=== PATIENT | female | born 1935 | race Caucasian/White ===

== ENCOUNTER → 2017-09-10 | Outpatient (CLI) | payer OTHER ==
[~2017-09-10] MED LIST: ADULT LOW DOSE81 MG PO; ALEVE220 MG PO; APAP500 PO; ATORVASTATIN CA40 MG PO; BRILINTA90 MG PO; CALCIUM 500 +1 EAC5 PO; CENTRUM SILVER1 EAC4 PO; CITRACAL + D E1 EACH PO; COLACE100 MG PO; COUMADIN 2 MG TA2 M1 PO; COZAAR 25MG TAB25 MG PO; COZAAR100 MG PO; EFFIENT10 MG PO; Effient PO; FISH OIL 1,0001 EAC5 PO; FLAX OIL1000 MG PO; HYDROCHLOROTH12.5 M2 PO; LEVOTHYROXIN0.137 M1 PO; LOPRESSOR25 PO; Lisinopril 10 Mg Tablet PO; METOPROLOL SUCC25 M1 PO; MULTIVITAMINS PO; NEXIUM20 M1 PO; NEXIUM40 MG PO; NITROGLYCERIN0.4 MG SUBLING; NITROQUICK0.4 MG PO; NORCO 5-325 TA1 EACH PO; OMEGA-31000 M1 PO; OMEPRAZOLE20 M2 PO; PRILOSEC 20 MG20 MG PO; UROCIT-K5 ME1 PO; VITAMIN B-12500 MCG PO; VITAMIN E400 UNIT PO; ZESTRIL10 MG PO; ZOCOR 20 MG TAB20 M1 PO; ZOCOR40 MG PO
== END ==
LOC: RAD 03:21
DX: Z12.31 Encounter for screening mammogram for malignant neoplasm of breast (principal)

== ENCOUNTER → 2018-09-11 | Outpatient (CLI) | payer OTHER | LOC: RAD 01:08 | DX: Z12.31 Encounter for screening mammogram for malignant neoplasm of breast (principal) ==

== ENCOUNTER → 2019-01-06 | Outpatient (CLI) | payer OTHER ==
[~2019-01-06] VITALS: Ht 162.6 cm; Wt 64.4 kg
[~2019-01-06] MED LIST changes: +CO Q-10100 MG PO; +COREG6.25 MG PO
[2019-01-06 08:16] VITALS: BP 150/67
[2019-01-06 08:18] LABS: HEMATOCRIT 38.2 % (37.0-47.0); HEMOGLOBIN 13.1 gm/dL (12.0-15.0); MCH 31.3 pg (26.0-34.0); MCHC 34.2 g/dL (28.0-37.0); MCV 91.6 fL (80.0-100.0); RBC 4.17 mil/uL (4.20-5.00); RDW 13.9 % (10.5-14.5); WBC 5.7 thou/uL (4.0-11.0)
[2019-01-06 08:28] LABS: CALCIUM 8.8 mg/dL (8.5-10.1); POTASSIUM 3.8 mmol/L (3.5-5.1)
--- NOTE | 2019-01-06 08:48 | EKG ---
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[employer] FLORES : 1935 Requested By: Sumeet Ortiz Order Number: [id number] MD: Kevon Good Measurements Intervals [place] Rate: 83 P: 28 IN: 217 QRS: -38 QRSD: 93 T: 31 QT: 386 QTc: 454 Interpretive Statements Sinus rhythm Borderline prolonged IN interval Abnormal R-wave progression, late transition Leftward axis Compared to ECG 10/04/2015 07:52:18 No significant change was found Electronically Signed On 01-06-2019 8:48:44 MAORI LIAISON ADVISER by Kevon Good [email or web address] <ELECTRONICALLY SIGNED> By: Kevon Good MD, [facility] 01/06/19 0848 5 Kevon Good MD, [facility] /EPI
--- NOTE | 2019-01-06 10:58 | CATHLAB ---
[facility] [place] [place] [address] INVASIVE PROCEDURE REPORT Name: REEDMURPHY Carty Room #: REG [facility]#: [id number] Admission: 01/06/19 Attend Phys: Sumeet Ortiz MD Discharge: Date of : 39 Date of Service: 01/06/19 1058 Report #: [id number] THIS REPORT FOR: //name// APPROVED REPORT Study performed: 01/06/2019 09:12:48 Patient Details Patient Status: Out-Patient Room #: The patient is a 83 year-old female Event Personnel Sumeet Ortiz Ui Architect, Gurpreet Melendez RN, Barrington Khan Mahmood, Amber Monitor Procedures Performed Art Access - R femoral artery* 56022 Initial Mod Sed Same Phys/QHP Gr5y 937300 Left Heart Cath w/or w/o Coronaries [id number] [facility] Hemostasis with Manual pressure Indication Dyspnea, Unstable angina , Chest pain Risk Factors Hypercholesterolemia, Coronary Artery DiseaseHypertension Procedure Narrative The patient was brought electively to the Cardiac Catheterization Laboratory and was prepped and draped in a sterile manner. The Right Groin^ was infiltrated with 1% Lidocaine subcutaneous anesthesia. A PINNACLE 4FR Sheath #[id number] sheath was inserted into the RFA^. Coronary angiography was performed using coronary diagnostic catheters. The right coronary system was accessed and visualized with a JR 4 catheter. The left coronary system was accessed and visualized with a JL 4 catheter. The left ventricle was accessed and visualized with a Pigtail catheter. Left ventricular/Aortic Valve gradient assessed via catheter pullback. Left ventriculogram was performed in TRACY projection. Hemostasis was obtained with manual pressure following sheath removal without any complications. The patient tolerated the procedure well and there were no complications associated with the procedure. There was no hematoma. Intraoperative Conscious Sedation Sedation start time: 938 Case end Time: 09:56 [facility] [place] [address] INVASIVE PROCEDURE REPORT Name: MURPHY MCBRIDE Room #: REG [facility]#: [id number] Admission: 01/06/19 Attend Phys: Sumeet Ortiz MD Discharge: Date of : 39 Date of Service: 01/06/19 1058 Report #: [id number] Fentanyl 50 mcg Versed 1 mg Fluoro Time: 1.55 minutes Dose: DAP 2229.00 cGycm2 297 mGy Contrast Type and Amount: Omnipaque 95 ml Coronary Angiography The patient's coronary anatomy is co- dominant. Diagnostic Cath Left Main This is a large caliber vessel, with no flow-limiting lesions. LAD This is a moderate size caliber vessel, traversing the anterior wall and terminating at the apex. There is a patent stent in the proximal segment with mild restenosis. There is a mild lesion in the mid segment of the LAD, 30%. Diagonal 1 This is a small-caliber vessel, patent with no flow-limiting lesions. Diagonal 2 This is a small-caliber vessel, patent with no flow-limiting lesions. Circumflex This is a codominant vessel. The proximal segment is mildly ectatic. There is a stent in the midsegment, patent with minimal restenosis. OM1 This is a moderate size caliber vessel, with mild disease proximally. OM2 This is a small-caliber vessel, patent with no flow-limiting lesions. OM3 This is a moderate size caliber vessel, with a patent stent at the proximal segment with minimal restenosis. Right Coronary There is a patent stent in the proximal/mid segment with minimal restenosis. R PDA This is a patent vessel, with no flow-limiting lesions. Left Ventriculography The left ventricle is normal in size with normal contractility. The left ventricular ejection fraction is estimated to be 55-60%. Hemodynamics The aortic pressure is 116/75 mmHg with a mean of 96 mmHg. The left ventricular pressure is 130/14 mmHg with a mean of mmHg. The left ventricular end diastolic pressure is 19 mmHg. Conclusion 1. There are patent stents in the LAD, left circumflex and RCA. 2. Codominant system. [facility] [address] [place] [address] INVASIVE PROCEDURE REPORT Name: MURPHY MCBRIDE Room #: REG [facility] [id number] Admission: 01/06/19 Attend Phys: Sumeet Ortiz MD Discharge: Date of : 39 Date of Service: 01/06/19 1058 Report #: [id number] 3. Normal LV systolic function. 4. Recommend aggressive risk factor management. <ELECTRONICALLY SIGNED> By: Sumeet Ortiz MD 01/06/19 1058 1058 Sumeet Ortiz MD /INF
== END | disposition home or self-care (01) ==
LOC: CATH 07:45
PROVIDERS: Internal Medicine Cardiovascular Disease
DX: I20.0 Unstable angina (principal); I10 Essential (primary) hypertension; E78.00 Pure hypercholesterolemia, unspecified; K21.9 Gastro-esophageal reflux disease without esophagitis; I25.2 Old myocardial infarction; Z82.49 Family history of ischemic heart disease and other diseases of the circulatory system; Z98.890 Other specified postprocedural states; Z87.442 Personal history of urinary calculi; Z79.899 Other long term (current) drug therapy; Z95.5 Presence of coronary angioplasty implant and graft; Z79.82 Long term (current) use of aspirin

== ENCOUNTER → 2019-09-14 | Outpatient (CLI) | payer OTHER | LOC: BC 11:18 | DX: Z12.31 Encounter for screening mammogram for malignant neoplasm of breast (principal) ==

== ENCOUNTER → 2020-03-08 | Outpatient (CLI) | payer OTHER | LOC: SJCVCIMAG 10:05 | DX: I42.9 Cardiomyopathy, unspecified (principal); I10 Essential (primary) hypertension; I25.10 Atherosclerotic heart disease of native coronary artery without angina pectoris; K21.9 Gastro-esophageal reflux disease without esophagitis; E78.5 Hyperlipidemia, unspecified ==

== ENCOUNTER → 2020-09-06 | Outpatient (CLI) | payer OTHER | LOC: SJCVC 13:50 | PROVIDERS: ATTEND Internal Medicine Cardiovascular Disease | DX: I25.10 Atherosclerotic heart disease of native coronary artery without angina pectoris (principal); I11.9 Hypertensive heart disease without heart failure; I25.5 Ischemic cardiomyopathy; E78.5 Hyperlipidemia, unspecified; K21.9 Gastro-esophageal reflux disease without esophagitis; E78.00 Pure hypercholesterolemia, unspecified ==

== ENCOUNTER → 2020-09-06 | Outpatient (CLI) | payer OTHER | LOC: BC 12:32 | PROVIDERS: ATTEND Family Medicine | DX: Z12.31 Encounter for screening mammogram for malignant neoplasm of breast (principal) ==

== ENCOUNTER → 2021-03-07 | Outpatient (CLI) | payer OTHER | LOC: SJCVC 10:11 | PROVIDERS: ATTEND Internal Medicine Cardiovascular Disease | DX: I44.0 Atrioventricular block, first degree (principal); I25.10 Atherosclerotic heart disease of native coronary artery without angina pectoris; I10 Essential (primary) hypertension; E78.5 Hyperlipidemia, unspecified; K21.9 Gastro-esophageal reflux disease without esophagitis; E78.00 Pure hypercholesterolemia, unspecified; Z85.3 Personal history of malignant neoplasm of breast; Z92.3 Personal history of irradiation; Z95.1 Presence of aortocoronary bypass graft; Z95.5 Presence of coronary angioplasty implant and graft; Z88.8 Allergy status to other drugs, medicaments and biological substances; Z79.82 Long term (current) use of aspirin; Z79.899 Other long term (current) drug therapy ==

== ENCOUNTER → 2021-09-12 | Outpatient (CLI) | payer OTHER | LOC: SJCVCIMAG 08:50 | PROVIDERS: ATTEND Internal Medicine Cardiovascular Disease | DX: I08.8 Other rheumatic multiple valve diseases (principal); R94.31 Abnormal electrocardiogram [ECG] [EKG]; I25.10 Atherosclerotic heart disease of native coronary artery without angina pectoris; I10 Essential (primary) hypertension; K21.9 Gastro-esophageal reflux disease without esophagitis; E78.5 Hyperlipidemia, unspecified; E03.9 Hypothyroidism, unspecified; I89.0 Lymphedema, not elsewhere classified; Z79.82 Long term (current) use of aspirin; Z79.899 Other long term (current) drug therapy; Z88.8 Allergy status to other drugs, medicaments and biological substances ==

== ENCOUNTER → 2021-09-15 | Outpatient (CLI) | payer OTHER | LOC: BC 09:28 | PROVIDERS: ATTEND Obstetrics & Gynecology | DX: Z12.31 Encounter for screening mammogram for malignant neoplasm of breast (principal); N64.89 Other specified disorders of breast ==